=== PATIENT | female | born 1975 | race Caucasian/White ===

== ENCOUNTER 2019-02-19 08:19 | Emergency (ER) | payer OTHER ==
[~2019-02-19] VITALS: Ht 162.6 cm; Wt 99.8 kg
[2019-02-19] MEDS ORDERED: LISINOPRIL2.5 MG PO (08:27)
[2019-02-19] MEDS ORDERED: BUPROPION XL300 MG PO (08:28)
[2019-02-19] MEDS ORDERED: CLARITIN10 MG PO (08:28)
[2019-02-19] MEDS ORDERED: FLONASE 0.05%50 MCG NARES (08:28)
[2019-02-19 09:26] VITALS: BP 102/67
== END 2019-02-19 09:28 | disposition home or self-care (01) ==
LOC: ER 08:19
DX: J06.9 Acute upper respiratory infection, unspecified (principal); J45.909 Unspecified asthma, uncomplicated; F32.9 Major depressive disorder, single episode, unspecified; I10 Essential (primary) hypertension